=== PATIENT | male | born 1955 | race Two or more races ===

== ENCOUNTER 2017-04-26 12:47 | Outpatient (CLI) | payer OTHER | END 2017-04-26 12:50 | disposition home or self-care (01) | LOC: RAD 12:47 | DX: M54.2 Cervicalgia (principal); M54.6 Pain in thoracic spine; M54.5 Low back pain ==

== ENCOUNTER 2017-05-08 12:22 | Outpatient (CLI) | payer OTHER | END 2017-05-08 15:00 | disposition home or self-care (01) | LOC: RAD 12:22 | DX: J45.21 Mild intermittent asthma with (acute) exacerbation (principal) ==